=== PATIENT | male | born 1990 | race African-American/Black ===

== ENCOUNTER 2020-12-05 14:51 | Emergency (ER) | payer MEDICAID ==
[~2020-12-05] VITALS: Ht 177.8 cm; Wt 82.0 kg
[2020-12-05 15:35] LABS: BASOPHILS % 0.7 % (0.0-2.0); CHLORIDE 106 mEq/L (98-107); EOSINOPHILS % 0.7 % (0.0-5.0); HEMATOCRIT. 54.1 % (42.0-52.0); HEMOGLOBIN. 17.9 g/dL (14.0-18.0); MEAN CORPUSCULAR HEMOGLOBIN 30.1 pg (28.0-32.0); MEAN PLATELET VOLUME 7.9 fl (7.4-10.4); NEUTROPHILS % 55.6 % (40.0-76.0); PLATELET 266 x1000/uL (130-400); RED BLOOD CELL COUNT 5.95 mill/uL (4.7-6.1)
[2020-12-05 17:00] VITALS: BP 144/82
== END 2020-12-05 19:00 | disposition home or self-care (01) ==
LOC: ER 14:51
DX: R07.89 Other chest pain (principal); F15.10 Other stimulant abuse, uncomplicated; I10 Essential (primary) hypertension; F12.10 Cannabis abuse, uncomplicated
CPT/HCPCS: 36415; 71045; 80053; 84484; 85025; 93005; 99285

== ENCOUNTER 2021-03-18 20:46 | Emergency (ER) | payer MEDICAID ==
[~2021-03-18] VITALS: Ht 175.3 cm; Wt 82.0 kg
[2021-03-18] MEDS ORDERED: FENTANYL CITRATE/PF 50MCG/ML 2ML VIAL IV ONE ×5 (21:15→21:30)
[2021-03-18] MEDS ORDERED: ONDANSETRON HCL 4MG/2ML INJ IV NR (22:15)
[2021-03-18] MEDS ORDERED: PROPOFOL 200MG/20ML VIAL IV NR (22:30)
[2021-03-19 02:22] VITALS: BP 156/122
== END 2021-03-19 02:30 | disposition home or self-care (01) ==
LOC: ER 21:26
DX: S43.014A Anterior dislocation of right humerus, initial encounter (principal); I10 Essential (primary) hypertension; J45.909 Unspecified asthma, uncomplicated; F15.10 Other stimulant abuse, uncomplicated; F12.10 Cannabis abuse, uncomplicated; V43.52XA Car driver injured in collision with other type car in traffic accident, initial encounter; Y93.89 Activity, other specified; Y92.488 Other paved roadways as the place of occurrence of the external cause; Y99.8 Other external cause status
CPT/HCPCS: 23650; 73030; 73080; 96374; 96375; 99152; 99285; J2405; J2704; J3010; Z7610; L3670